=== PATIENT | female | born 2000 | race Two or more races ===

== ENCOUNTER → 2020-07-14 15:18 | Outpatient (CLI) | payer OTHER | END | disposition home or self-care (01) | LOC: PPH VACUNA 15:18 | DX: Z23 Encounter for immunization (principal) ==

== ENCOUNTER 2020-08-13 08:00 | Outpatient (CLI) | payer OTHER | END 2020-08-13 08:30 | disposition home or self-care (01) | LOC: PPH VACUNA 08:00 | DX: Z23 Encounter for immunization (principal) ==

== ENCOUNTER 2021-08-17 06:41 | Emergency (ER) | payer OTHER ==
[~2021-08-17] VITALS: Ht 149.9 cm; Wt 81.6 kg
[2021-08-17] MEDS ORDERED: PRENATALES (07:13)
== END 2021-08-17 12:28 | disposition home or self-care (01) ==
LOC: ER 06:41
DX: O20.9 Hemorrhage in early pregnancy, unspecified (principal); O98.511 Other viral diseases complicating pregnancy, first trimester; U07.1 COVID-19; Z3A.10 10 weeks gestation of pregnancy

== ENCOUNTER 2021-10-14 08:53 | Emergency (ER) | payer OTHER ==
[~2021-10-14] VITALS: Ht 149.9 cm; Wt 86.2 kg
[~2021-10-14 08:53] MED LIST: PRENATALES
== END 2021-10-14 11:20 | disposition home or self-care (01) ==
LOC: ER 08:53
DX: N39.0 Urinary tract infection, site not specified (principal)

== ENCOUNTER 2021-11-13 11:43 | Emergency (ER) | payer OTHER ==
[~2021-11-13] VITALS: Ht 149.9 cm; Wt 87.5 kg
== END 2021-11-13 18:56 | disposition home or self-care (01) ==
LOC: ER 11:43
DX: R10.13 Epigastric pain (principal); Z20.822 Contact with and (suspected) exposure to COVID-19